=== PATIENT | male | born 1950 | race Asian ===

== ENCOUNTER 2024-08-09 13:29 | Emergency (ER) | payer MEDICARE, MEDICAID ==
[~2024-08-09] VITALS: Ht 160 cm; Wt 72.7 kg
[~2024-08-09 13:29] MED LIST: AMLO-257 PO; LOSA-381 PO; METF-1211 PO
[2024-08-09 13:41] VITALS: TEMP 98.2
[2024-08-09] MEDS ORDERED: OMEP20CA12 PO (13:45)
[2024-08-09] MEDS ORDERED: ALLO100T PO (13:45)
[2024-08-09] MEDS ORDERED: AMLO5TAB66 PO (13:45)
[2024-08-09] MEDS ORDERED: LOSA-382 PO (13:45)
[2024-08-09] MEDS ORDERED: DICL100G60 TP (13:45)
[2024-08-09] MEDS ORDERED: PRAV20TA4 PO (13:45)
[2024-08-09] MEDS: IBUPROFEN 600 MG TABLET PO ONE (16:17)
[2024-08-09] MEDS ORDERED: IBUP-1492 PO (16:49)
[2024-08-09 17:00] VITALS: BP 149/78; PULSE 79; RESP 18; O2SAT 98
== END 2024-08-09 17:43 | disposition home or self-care (01) ==
LOC: EMS 13:29
DX: S93.602A Unspecified sprain of left foot, initial encounter (principal); E11.9 Type 2 diabetes mellitus without complications; I10 Essential (primary) hypertension; Z88.2 Allergy status to sulfonamides; Z79.899 Other long term (current) drug therapy; W01.0XXA Fall on same level from slipping, tripping and stumbling without subsequent striking against object, initial encounter; Y93.89 Activity, other specified; Y92.89 Other specified places as the place of occurrence of the external cause; Y99.8 Other external cause status
CPT/HCPCS: 82962; 99283